=== PATIENT | female | born 1975 | race Caucasian/White ===

== ENCOUNTER → 2016-11-13 | Outpatient (CLI) | payer OTHER ==
[~2016-11-13] MED LIST: AMT/50 PO; CLON0.1D5 TD; ESTR2TAB PO; ESTRD2 PO; LPT40 PO; NITR1CAP11 PO; POTA4.25 PO; RANI150T2 PO; RIZA1TAB10 PO; TRAMTAB5 PO; VRPSR180 PO
[2016-11-13 15:02] LABS: BLOOD UREA NITROGEN 12 mg/dl (7-18); BUN/CREATININE RATIO 17.1 (10-20); CALCIUM 9.6 mg/dl (8.5-10.1); CARBON DIOXIDE 24 mmol/L (21-32); CHLORIDE 106 mmol/L (98-107); CREATININE 0.68 mg/dl (0.60-1.20); GLUCOSE 90 mg/dl (70-99); POTASSIUM 3.7 mmol/L (3.5-5.1); SODIUM 142 mmol/L (136-145)
== END | disposition home or self-care (01) ==
LOC: C.LAB1850 13:44
PROVIDERS: ATTEND Internal Medicine
DX: R00.2 Palpitations (principal); R07.89 Other chest pain

== ENCOUNTER → 2017-06-10 | Outpatient (CLI) | payer OTHER ==
[2017-06-10 14:03] LABS: ALT/SGPT 34 U/L (12-78); AST/SGOT 19 U/L (15-37); BLOOD UREA NITROGEN 10 mg/dl (7-18); BUN/CREATININE RATIO 14.7 (10-20); CALCIUM 9.2 mg/dl (8.5-10.1); CARBON DIOXIDE 29 mmol/L (21-32); CHLORIDE 107 mmol/L (98-107); CREATININE 0.69 mg/dl (0.60-1.20); GLUCOSE 95 mg/dl (70-99); POTASSIUM 3.8 mmol/L (3.5-5.1); SODIUM 140 mmol/L (136-145)
[2017-06-10 14:06] LABS: ALB/GLOB RATIO 1.1 (0.9-2); ALKALINE PHOSPHATASE 100 U/L (45-117); CHOLESTEROL 155 mg/dl (0-200); CHOLESTEROL/HDL RATIO 3.9; HDL CHOLESTEROL 40 mg/dl; LDL CHOLESTEROL CALCULATED 80 mg/dl; TRIGLYCERIDES 173 mg/dl (0-150); VERY LOW DENSITY LIPOPROT CALC 35 mg/dl
== END | disposition home or self-care (01) ==
LOC: C.LAB1850 12:32
PROVIDERS: ATTEND Physician Assistant
DX: E78.5 Hyperlipidemia, unspecified (principal)

== ENCOUNTER → 2017-07-02 | Outpatient (CLI) | payer OTHER | END | disposition home or self-care (01) | LOC: C.PATHSPEC 18:14 | PROVIDERS: ATTEND Physician Assistant | DX: D18.00 Hemangioma unspecified site (principal) ==

== ENCOUNTER → 2017-12-17 | Outpatient (CLI) | payer OTHER ==
[~2017-12-17] MED LIST changes: -NITR1CAP11 PO; +NITR50CA PO
--- NOTE | 2017-12-17 10:50 | DIAGNOSTIC IMAGING REPORT ---
ULTRASOUND EXAM AAA SCREEN CLINICAL HISTORY: Hypertension. Family history of abdominal aortic aneurysm. COMPARISON STUDY: CT of the abdomen and pelvis January 24, 2010. FINDINGS: The caliber of the abdominal aorta is normal. The proximal abdominal aorta measures 1.8 cm. The mid abdominal aorta measures 1.5 cm and the distal abdominal aorta measures 1.3 cm. The caliber of the proximal bilateral common iliac arteries is also normal. IMPRESSION: Normal caliber abdominal aorta. Electronically signed by: Dipesh Quintana M.D. 12/17/2017 10:48 AM Dictated Date/Time: 12/17/2017 10:48 AM
[2017-12-17 12:27] LABS: ALBUMIN 3.9 gm/dl (3.4-5.0); ALT/SGPT 49 U/L (12-78); AST/SGOT 24 U/L (15-37); BLOOD UREA NITROGEN 17 mg/dl (7-18); CALCIUM 9.2 mg/dl (8.5-10.1); CARBON DIOXIDE 26 mmol/L (21-32); CREATININE 0.77 mg/dl (0.60-1.20); GLUCOSE 105 mg/dl (70-99); POTASSIUM 3.3 mmol/L (3.5-5.1); SODIUM 137 mmol/L (136-145)
[2017-12-17 12:35] LABS: ALKALINE PHOSPHATASE 111 U/L (45-117); CHOLESTEROL 165 mg/dl (0-200); LDL CHOLESTEROL CALCULATED 85 mg/dl; TOTAL PROTEIN 7.8 gm/dl (6.4-8.2)
== END | disposition home or self-care (01) ==
LOC: C.ULTR 10:05
PROVIDERS: ATTEND Internal Medicine
DX: I10 Essential (primary) hypertension (principal); K59.09 Other constipation

== ENCOUNTER → 2018-03-08 | Outpatient (CLI) | payer OTHER ==
[~2018-03-08] MED LIST changes: -NITR50CA PO; +NITR50CA4 PO
[2018-03-08 11:31] LABS: BLOOD UREA NITROGEN 14 mg/dl (7-18); CALCIUM 9.4 mg/dl (8.5-10.1); CARBON DIOXIDE 29 mmol/L (21-32); CREATININE 0.84 mg/dl (0.60-1.20); GLUCOSE 104 mg/dl (70-99); POTASSIUM 3.2 mmol/L (3.5-5.1); SODIUM 141 mmol/L (136-145)
== END | disposition home or self-care (01) ==
LOC: C.LAB1850 10:22
PROVIDERS: ATTEND Internal Medicine
DX: R94.6 Abnormal results of thyroid function studies (principal); E87.6 Hypokalemia